=== PATIENT | female | born 1985 | race Caucasian/White ===

== ENCOUNTER 2024-06-10 08:02 | Outpatient (CLI) | payer BC, SELFPAY ==
--- NOTE | 2024-06-10 08:00 | RT.EKG_ITS ---
APPROVED REPORT Exam: Resting ECG Reason for Exam: chesta pain Patient Location: O HR:100 bpm ECG Measurements Heart Rate 100 AXIS OK 115 P 70 QRSd 89 QRS 92 QT 338 T 2 QTc 436 Conclusion Sinus tachycardia...rate> 99 Probable left atrial enlargement...P >50mS, <-0.10mV V1 Borderline right axis deviation...QRS axis ( 90, 99) Minimal ST depression, diffuse leads...ST <-0.03mV, ant/lat/inf Baseline wander in lead(s) I,II,III,aVR,aVF
== END 2024-06-10 08:03 | disposition home or self-care (01) ==
LOC: DI.CARD 08:03
PROVIDERS: Visit Provider Internal Medicine Cardiovascular Disease
DX: R07.9 Chest pain, unspecified (principal)
CPT/HCPCS: 93010